=== PATIENT | male | born 1960 | race Hispanic/Latino ===

== ENCOUNTER 2025-07-27 14:15 | Emergency (ER) | payer OTHER ==
[2025-07-27 14:52] LABS: #Basophils 0.2 thou/uL (0.0-0.2); #Eosinophils 0.0 thou/uL (0.0-0.7); #Lymphocytes 0.7 thou/uL (1.20-3.40); #Monocytes 0.4 thou/uL (0.11-0.59); #Neutrophils 5.0 thou/uL (1.40-6.50); %Basophils 2.6 % (0.0-1.0); %Eosinophils 0.7 % (0.0-10.0); %Lymphocytes 11.3 % (21.0-51.0); %Monocytes 5.9 % (0.0-10.0); %Neutrophils 79.6 % (42.0-75.0); Hematocrit 38.1 % (42.0-52.0); Hemoglobin 13.1 g/dL (14.0-18.0); Mean Corpuscular Hemoglobin 29.7 pg (27.0-31.0); Mean Corpuscular Volume 86.0 fl (78.0-98.0); Platelet Count 278 10x3/uL (130-400); Red Blood Cell (RBC) Count 4.43 mill/uL (4.70-6.10); White Blood Cell (WBC) Count 6.3 10x3/uL (4.8-10.8)
[2025-07-27 14:56] LABS: Glucose, Urine (Dipstick) 100 mg/dL (Negative); Leukocyte Trace (Negative); Protein, Urine (Dipstick) 30 mg/dL (Neg-Trace); Specific Gravity, Urine Greater/Equal 1.030 (1.005-1.030)
[2025-07-27 15:00] LABS: RBC/HPF 0-3 HPF (0-3)
[2025-07-27 15:01] LABS: Bacteria/HPF 2+ HPF (None Seen); CAUTI Indications for Culture Fever or rigors; Mucous/LPF 2+ LPF (<2+)
[2025-07-27 15:02] LABS: Urine Culture Reflex Yes Yes
[2025-07-27 15:04] LABS: ALT (SGPT) 55 U/L (Less than 45); AST (SGOT) 48 U/L (11-34); Albumin 3.5 g/dL (3.1-4.5); Alkaline Phosphatase 80 U/L (40-110); Anion Gap 20 mmol/L (10-20); BUN (Urea Nitrogen) 21 mg/dL (8.4-25.7); Bilirubin, Total 0.6 mg/dL (0.3-1.2); Calc. Creatinine Clearance 0 mL/min (70-130); Calcium 9.4 mg/dL (7.8-10.44); Carbon Dioxide 21 mmol/L (23-31); Chloride 103 mmol/L (98-107); Globulin 3.7 g/dL (2.4-3.5); Glucose 170 mg/dL (80-115); Potassium 4.3 mmol/L (3.5-5.1); Sodium 140 mmol/L (136-145)
[2025-07-27] MEDS ORDERED: cefTRIAXone (ROCEPHIN) 1 GM VIAL ONE ×2 (15:30→17:13)
[2025-07-27] MEDS ORDERED: Ibuprofen 200 MG TAB ONE (16:39)
== END 2025-07-27 17:46 | disposition short-term general hospital (02) ==
LOC: BURERS 14:15
DX: A41.9 Sepsis, unspecified organism (principal); N39.0 Urinary tract infection, site not specified; E11.9 Type 2 diabetes mellitus without complications; I10 Essential (primary) hypertension
CPT/HCPCS: 36415; 74176; 80053; 81001; 83605; 85025; 87040; 87086; 96365; 96366; 96376; J0696